=== PATIENT | male | born 1990 | race African-American/Black ===

== ENCOUNTER 2019-12-21 10:42 | Emergency (ER) | payer MEDICAID ==
[~2019-12-21] VITALS: Ht 180.3 cm; Wt 105.0 kg
[2019-12-21 10:46] VITALS: BP 135/84
== END 2019-12-21 11:03 | disposition home or self-care (01) ==
LOC: ER 10:42
DX: F20.9 Schizophrenia, unspecified (principal); F31.9 Bipolar disorder, unspecified
CPT/HCPCS: 99281